=== PATIENT | female | born 1975 | race Caucasian/White ===

== ENCOUNTER 2016-09-02 08:29 | Emergency (ER) | payer OTHER ==
--- NOTE | ~2016-09-02 | CT4 ---
[facility] A Service of [facility] & [facility] RADIOLOGY TEXT RESULTS PATIENT: CORTNEY GUARDADO LOCATION: SED : 75 UNIT #: [id number] AGE: [address]: Richard Krishnan DO SEX: F ORDER DR: [id number] [address] [address] [id number] E MR#: [id number] Acc #: [id number] NAME: CORTNEY GUARDADO : 1975 SEX: F STUDY DATE/TIME: 09/02/2016 8:50 UNIT: SED ROOM: STUDY DESCRIPTION: CT Abd and Pelv Wo Cont Attending Physician: Richard Krishnan Ordering Physician: Weston Tobin M.D. Primary Care Physician: Helen Almendarez M.D. MEDICAL IMAGING REPORT This report is preliminary unless electronic signature is present. EXAM CT of the head without contrast. DATE OF EXAM 09/02/2016 INDICATIONS Flank pain and vomiting. This is located in the left lower abdomen and back started at 7 a.m. today. TECHNIQUE Ax[address] images were obtained from the dome of the diaphragm through the symphysis pubis. No oral or intravenous contrast material was administered. NOTE: This CT exam was performed with one or more of the following radiation dose reduction techniques: automatic exposure control, adjustment of mA and/or kV according to patient size, and iterative reconstruction. FINDINGS Images through the lung bases are clear. This patient has diffuse hepatic steatosis. The spleen, stomach and proximal small bowel are within normal limits as are the adrenal glands, pancreas and gallbladder. This patient has very mild left-sided hydroureteronephrosis which is secondary to a 3 mm stone which is located within the distal left ureter or potentially actually within the bladder itself. Full assessment is difficult as the patient's bladder is markedly decompressed. Punctate nonobstructing stones are identified within the right kidney. No hydroureteronephrosis is seen on the right. Again, the patient's urinary bladder is significantly decompressed. No free fluid or adenopathy is seen within the abdomen. There is no evidence of mechanical bowel obstruction. The appendix is visualized and is within normal limits. Uterus appears unremarkable. I do not see any free fluid or STS. [facility] A Service of [facility] & [facility] RADIOLOGY TEXT RESULTS PATIENT: CORTNEY GUARDADO LOCATION: SED : 75 UNIT #: [id number] AGE: [address]: Richard Krishnan DO SEX: F ORDER DR: adenopathy within the pelvis. Unopacified GI tract appears normal. There is a tiny fat-containing umbilical hernia. Review of bony windows does not demonstrate any aggressive osseous abnormalities. IMPRESSION 1. Very mild left-sided hydroureteronephrosis which is secondary to a 3 mm stone which is either located within the left distal ureter or potentially even within the bladder itself. Full assessment is limited as the patient's bladder is completely decompressed. Patient is also noted have nonobstructing stones within the right kidney. 2. Diffuse hepatic steatosis. 3. The appendix is visualized and is within normal limits. Please see the body of the report for any other additional incidental findings. Dictated by... Shaylee Hartman M.D. THIS IS AN ELECTRONICALLY VERIFIED REPORT Shaylee Hartman M.D. at 09/03/2016 1:22 PM TIA/hilario TD: 09/02/2016 22:04 JOB #: [id number] MEDICAL IMAGING REPORT
[2016-09-02 08:26] LABS: URINE SOURCE CLEAN CATCH
[2016-09-02 08:28] LABS: URINE APPEARANCE CLEAR; URINE BLOOD 3+ (NEG); URINE COLOR YELLOW; URINE GLUCOSE NEG (NORM); URINE KETONE NEG (NEG); URINE LEUKOCYTE ESTERASE NEG (NEG); URINE NITRATE NEG (NEG); URINE PROTEIN 1+ (NEG); URINE SPECIFIC GRAVITY >=1.030 (1.003-1.035); URINE UROBILINOGEN 0.2 MG/DL (NORM)
[2016-09-02 08:29] LABS: MICRO INDICATED? YES; URINE BILIRUBIN NEG (NEG)
[~2016-09-02 08:29] MED LIST: ALBUTEROL17 GM INH; ALLERGY RELIEF10 MG PO; BACTRIM DS TABL1 TA1 PO; CIPRO PO; DEPAKOTE PO; DICLOFENAC; DICLOFENAC PO; DOXYCYCLINE150 MG PO; FLAGYL; FLAGYL PO; FLEXERIL10 MG PO; FLOMAX0.4 M1 PO; FLOMAX0.4 MG PO; FLONASE 0.05% N16 G1; KLONOPIN1 M1 PO; LAMICTAL25 MG PO; LORTAB 5/500 TA1 TA1 PO; MOBIC PO; NO MEDICATIONS; PERCOCET 5-3251 TAB PO; PERCOCET5/325 PO; PHENERGAN PO; PHENERGAN25 MG PO; PYRIDIUM100 MG PO; SINGULAIR PO; TORADOL10 MG PO; TYLENOL #3 PO; VICODIN 5/1 TAB 5/50; VICODIN 5/1 TAB 5/50 PO; VICODIN 5/500 T1 TAB PO; VITUZ SOLUTION480 ML PO; VOLTAREN PO; XANAX PO; [UNRECOGNIZED DRUG - REMARK]
[2016-09-02 08:39] LABS: BASOPHIL# 0.1 X10e3 (0-0.3); BASOPHIL% 0.9 % (0-2.5); EOSINOPHIL# 0.1 X10e3 (0-0.7); EOSINOPHIL% 1.7 % (0.0-7.0); HEMATOCRIT 49.9 % (35.0-45.0); LYMPHOCYTE% 49.3 % (17.0-45.0); MEAN CELL VOLUME 93.8 FL (83-96); MEAN CORPUSCULAR HEMOGLOBIN 31.9 PG (28-34); MEAN PLATELET VOLUME 8.9 FL (6.5-11.5); MONOCYTE# 0.5 X10e3 (0-1.0); MONOCYTE% 8.6 % (3.0-12.0); NEUTROPHIL# 2.4 X10e3 (1.5-7.1); NEUTROPHIL% 39.5 % (40-75); PLATELET COUNT 200 X10e3 (140-420); RED BLOOD COUNT 5.33 X10e (3.90-5.30); RED CELL DISTRIBUTION WIDTH 13.2 % (11.0-15.5); WHITE BLOOD COUNT 6.2 X10e3 (4.0-10.5)
[2016-09-02 08:40] LABS: CULTURE INDICATED? YES; URINE BACTERIA 1+ (NEG); URINE RBC 25-50 /[HPF] (0-2); URINE SQUAMOUS EPITHELIAL CELL MANY /[HPF]; URINE YEAST PRESENT
[2016-09-02 08:45] LABS: DIFF IND NO
[2016-09-02 08:50] LABS: ALBUMIN SERUM 3.8 g/dL (3.5-5.0); ALKALINE PHOSPHATASE 51 U/L (32-92); ALT (SGPT) 68 U/L (10-40); AST (SGOT) 67 U/L (10-42); BILIRUBIN,TOTAL 0.8 mg/dL (0.2-2.0); BLOOD UREA NITROGEN 8 mg/dL (9-23); BUN/CREATININE RATIO 8.88; CALCIUM SERUM 8.6 mg/dL (8.4-10.2); CARBON DIOXIDE 23 mmol/L (22-31); CHLORIDE 106 mmol/L (100-111); CREATININE SERUM 0.9 mg/dL (0.6-1.4); GLOM FILT RATE Estimated ABOVE60 mL/min (>60); GLUCOSE FASTING 135 mg/dL (70-110); LIPASE 41 U/L (22-51); POTASSIUM 3.5 mmol/L (3.5-5.1); SODIUM 138 mmol/L (135-145)
== END 2016-09-02 10:03 | disposition home or self-care (01) ==
LOC: SED 08:29
PROVIDERS: Emergency Medicine
DX: N13.2 Hydronephrosis with renal and ureteral calculous obstruction (principal); F41.9 Anxiety disorder, unspecified; F17.210 Nicotine dependence, cigarettes, uncomplicated
CPT/HCPCS: 36415; 74176; 80053; 81003; 83690; 84703; 85025; 87086; 96361; 96374; 96375; 99284; J1170; J1885; J2405

== ENCOUNTER → 2017-02-06 | Outpatient (CLI) | payer OTHER ==
--- NOTE | ~2017-02-06 | CT5 ---
[facility] A Service of [facility] & [facility] RADIOLOGY TEXT RESULTS PATIENT: CORTNEY GUARDADO [facility] UNIT #: [id number] AGE: [address]: Helen Almendarez MD SEX: F ORDER DR: [id number] [facility] [address] [place], [place] [address] [id number] O MR#: [id number] [facility] #: [id number] NAME: CORTNEY GUARDADO : 1975 SEX: F STUDY DATE/TIME: 02/06/2017 10:29 UNIT: [facility] ROOM: STUDY DESCRIPTION: CT Abdomen W Cont Attending Physician: Helen Almendarez M.D. Referring Physician: Helen Almendarez M.D. Ordering Physician: Helen Almendarez M.D. Primary Care Physician: Helen Almendarez M.D. MEDICAL IMAGING REPORT This report is preliminary unless electronic signature is present EXAM CT abdomen with contrast. INDICATION Abnormal liver ultrasound, hepatic steatosis, elevated liver function test. COMPARISON 09/02/2016. TECHNIQUE The patient was given 100 cc of Isovue 370 and axial 5 mm images were obtained through the abdomen. Sagittal and coronal reconstructions were generated. FINDINGS The lung bases are clear. The liver appears to be decreased in density. There is an enhancing lesion in the right hepatic lobe near the diaphragm that measures 12 mm in diameter. This lesion has been present since 2009 and is consistent with hemangioma. There is another similar lesion in the left lobe. This is larger with enhancing portion measuring 3.2 cm in diameter. This was also seen in 2010 on unenhanced study and is stable in size. The rest of the liver is normal. The gallbladder is normal. Spleen is slightly prominent and unchanged from old study of 2009. The pancreas, adrenal glands and kidneys are normal. The aorta is normal in size. The visualized bowel appears normal. Visualized bones are normal. IMPRESSION 1. Two enhancing lesions in the liver. There is one in the right lobe and one in the left lobe and visualized and consistent with hemangioma and have been stable since 2009. 2. Decreased density throughout the liver, consistent with fatty change. 3. Otherwise normal study. [facility] A Service of [facility] & [facility] RADIOLOGY TEXT RESULTS PATIENT: CORTNEY GUARDADO LOCATION: [facility] : 75 UNIT #: [id number] AGE: [address]: Helen Almendarez MD SEX: F ORDER DR: Dictated by... Kang Yanes M.D. THIS IS AN ELECTRONICALLY VERIFIED REPORT Kang Yanes M.D. at 02/07/2017 2:09 PM FEL/gz TD: 02/07/2017 11:50 JOB #: [id number] MEDICAL IMAGING REPORT Page 1 of 1 COPY
== END | disposition home or self-care (01) ==
LOC: CCAT 09:02
DX: K76.0 Fatty (change of) liver, not elsewhere classified (principal); R93.2 Abnormal findings on diagnostic imaging of liver and biliary tract; K76.89 Other specified diseases of liver
CPT/HCPCS: 74160; Q9967

== ENCOUNTER → 2017-02-09 | Outpatient (CLI) | payer OTHER ==
--- NOTE | ~2017-02-09 | CR126 ---
[facility] A Service of [facility] & [facility] RADIOLOGY TEXT RESULTS PATIENT: CORTNEY GUARDADO LOCATION: [facility] : 75 UNIT #: [id number] AGE: [address]: ANNETTE VIVAR SEX: F ORDER DR: [id number] [facility] [address] [place], [place] [address] [id number] O MR#: [id number] Acc #: [id number] NAME: CORTNEY GUARDADO : 1975 SEX: F STUDY DATE/TIME: 02/09/2017 15:22 UNIT: [facility] ROOM: STUDY DESCRIPTION: CR Foot Complete Min 3 View Lt Attending Physician: Medhat Wright Referring Physician: Medhat Wright Ordering Physician: Medhat Wright Primary Care Physician: Helen Almendarez M.D. MEDICAL IMAGING REPORT This report is preliminary unless electronic signature is present EXAM Left foot. INDICATIONS Left foot pain status post fall. Fall down stairs 1 day ago. FINDINGS Three views of the left foot without comparison. There is no acute fracture or dislocation. Alignment is anatomic. No foreign body. IMPRESSION Negative left foot. Dictated by... Scott Jones M.D. THIS IS AN ELECTRONICALLY VERIFIED REPORT Scott Jones M.D. at 02/10/2017 3:54 PM RENO/pooja TD: 02/10/2017 12:48 JOB #: [id number] MEDICAL IMAGING REPORT Page 1 of 1 COPY
== END | disposition home or self-care (01) ==
LOC: CRAD 14:49
DX: M79.672 Pain in left foot (principal)
CPT/HCPCS: 73630